=== PATIENT | male | born 1960 | race African-American/Black ===

== ENCOUNTER 2016-08-12 09:30 | Inpatient (IN) | payer BC ==
[2016-08-12] MEDS ORDERED: ONDANSETRON 4 MG/2 ML VIAL IVPUSH ONE (11:47)
[2016-08-12] MEDS ORDERED: PANTOPRAZOLE SODIUM 40 MG in SODIUM CHLORIDE 100 ML IVPB ONE (11:47)
[2016-08-12] MEDS ORDERED: SODIUM CHLORIDE 1,000 ML IV STA (11:47)
[2016-08-12] MEDS ORDERED: PANTOPRAZOLE SODIUM 100 ML IVPB ONE (11:52)
[2016-08-12] MEDS ORDERED: ONDANSETRON 4 MG/2 ML VIAL ONE (11:52)
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
[2016-08-12 12:35] LABS: BASOPHIL 0.3 % (0-2.0); MCHC 32.5 g/dl (32.0-35.9); MEAN CELL VOLUME 83.2 fl (80-96); MEAN PLT VOLUME 8.8 fl (7.5-11.1); NEUTROPHILS 67.1 % (42.8-82.8); PLATELET COUNT 225 K/MM3 (134-434); RDW 14.1 % (11.9-15.9); WHITE BLOOD COUNT 8.2 K/mm3 (4.0-10.0)
[2016-08-12 13:02] LABS: ALBUMIN 4.2 g/dl (3.4-5.0); ANION GAP 10 (8-16); CALCIUM 9.4 mg/dL (8.5-10.1); CO2 30 mmol/L (21-32); COCKROFT - GAULT 127.54; CREATININE 1.1 mg/dL (0.7-1.3); GLUCOSE,RANDOM 83 mg/dL (74-106); MAGNESIUM 2.3 mg/dL (1.8-2.4); SGOT/AST 32 U/L (15-37); SGPT/ALT 44 U/L (12-78)
[2016-08-12 13:04] LABS: ALK PHOS 160 U/L (45-117); BILIRUBIN,TOTAL 0.5 mg/dL (0.2-1.0); TOT PROT 7.7 g/dl (6.4-8.2)
[2016-08-12] MEDS: CIPROFLOXACIN 0.3% EYE DROPS 5 ML BOTTLE OD SCH ×3 (13:24→22:05)
[2016-08-12] MEDS: prednisoLONE ACETATE 1% OPHTH SUSP 5 ML BOTTLE OD SCH ×3 (13:24→22:05)
[2016-08-12 14:30] LABS: URINE APPEARANCE CLEAR; URINE BILIRUBIN NEGATIVE (NEGATIVE); URINE BLOOD NEGATIVE (NEGATIVE); URINE COLOR LTYELLOW; URINE GLUCOSE (UA) NEGATIVE (NEGATIVE); URINE KETONE NEGATIVE (NEGATIVE); URINE LEUK ESTERASE NEGATIVE (NEGATIVE); URINE NITRITE NEGATIVE (NEGATIVE); URINE PROTEIN NEGATIVE (NEGATIVE); URINE UROBILINOGEN NEGATIVE E.U./dl (0.2-1.0)
[2016-08-12] MEDS ORDERED: morphine CARPU-JECT 2 MG/1 ML DISP.SYRIN IVPUSH PRN (19:20)
[2016-08-12] MEDS ORDERED: ONDANSETRON 4 MG/2 ML VIAL IVPB PRN (19:20)
[2016-08-12] MEDS ORDERED: SODIUM CHLORIDE 1,000 ML IV SCH (19:30)
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
[2016-08-13 03:04] VITALS: BMI 37.9
[2016-08-13 07:29] LABS: MCH 27.2 pg (25.7-33.7); MEAN CELL VOLUME 82.6 fl (80-96); MEAN PLT VOLUME 8.4 fl (7.5-11.1); PLATELET COUNT 204 K/MM3 (134-434); RDW 14.4 % (11.9-15.9); WHITE BLOOD COUNT 5.7 K/mm3 (4.0-10.0)
[2016-08-13 08:06] LABS: ALBUMIN 3.5 g/dl (3.4-5.0); ANION GAP 8 (8-16); CALCIUM 8.2 mg/dL (8.5-10.1); CO2 30 mmol/L (21-32); GLUCOSE,RANDOM 78 mg/dL (74-106); MAGNESIUM 2.2 mg/dL (1.8-2.4); SGOT/AST 27 U/L (15-37)
[2016-08-13 08:08] LABS: ALK PHOS 138 U/L (45-117); BILIRUBIN,TOTAL 0.5 mg/dL (0.2-1.0); COCKROFT - GAULT 137.62; SGPT/ALT 41 U/L (12-78); TOT PROT 6.7 g/dl (6.4-8.2)
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
[2016-08-13] MEDS ORDERED: DEXTROSE 5%-NORMAL SALINE 1,000 ML IV SCH (08:45)
[2016-08-13] MEDS: prednisoLONE ACETATE 1% OPHTH SUSP 5 ML BOTTLE OD SCH ×2 (10:25→14:53)
--- NOTE | 2016-08-13 11:48 | EKG ---
Test Reason : Blood Pressure : / mmHG Vent. Rate : 060 BPM Atrial Rate : 060 BPM P-R Int : 166 ms QRS Dur : 092 ms QT Int : 418 ms P-R-T Axes : 041 004 027 degrees QTc Int : 418 ms NORMAL SINUS RHYTHM POSSIBLE LEFT ATRIAL ENLARGEMENT NONSPECIFIC T WAVE ABNORMALITY ABNORMAL ECG WHEN COMPARED WITH ECG OF 14-JUL-2015 11:08, NO SIGNIFICANT CHANGE WAS FOUND Confirmed by BECKY CHINCHILLA, NICKO ([id number]) on 08/13/2016 11:48:33 AM Referred By: Confirmed By:NICKO PENA MD
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
[2016-08-13 14:19] VITALS: BP 144/99; PULSE 74; TEMP 97.7
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
--- NOTE | 2016-08-13 16:50 | DS ---
Physical Exam: SUBJECTIVE: Patient seen and examined OBJECTIVE: Vital Signs Period Temp Pulse Resp BP Sys/Valladares Pulse Ox Last 24 Hr 97.7 F-98.8 F 66-74 18-22 105-145/71-99 95-98 PHYSICAL EXAM GENERAL: The patient is awake, alert, and fully oriented, in no acute distress. HEAD: Normal with no signs of trauma. EYES: PERRL, extraocular movements intact, sclera anicteric, conjunctiva clear. ENT: Ears normal, nares patent, oropharynx clear without exudates, moist mucous membranes. NECK: Trachea midline, full range of motion, supple. LUNGS: Breath sounds equal, clear to auscultation bilaterally, no wheezes, no crackles, no accessory muscle use. HEART: Regular rate and rhythm, S1, S2 without murmur, rub or gallop. ABDOMEN: Soft, nontender, nondistended, normoactive bowel sounds, no guarding, no rebound, no hepatosplenomegaly, no masses. EXTREMITIES: 2+ pulses, warm, well-perfused, no edema. NEUROLOGICAL: Cranial nerves II through XII grossly intact. Normal speech, gait not observed. PSYCH: Normal mood, normal affect. SKIN: Warm, dry, normal turgor, no rashes or lesions noted. LABS Laboratory Results - last 24 hr 08/13/16 08/13/16 06:20 06:20 WBC 5.7 D RBC 5.29 Hgb 14.4 Hct 43.7 MCV 82.6 MCHC 33.0 RDW 14.4 Plt Count 204 MPV 8.4 Sodium 143 Potassium 3.6 Chloride 105 Carbon Dioxide 30 Anion Gap 8 BUN 10 D Creatinine 1.0 Creat Clearance w eGFR > 60 Random Glucose 78 Calcium 8.2 L Phosphorus 3.0 Magnesium 2.2 Total Bilirubin 0.5 AST 27 ALT 41 Alkaline Phosphatase 138 H Total Protein 6.7 Albumin 3.5 HOSPITAL COURSE: Date of Admission:08/12/16 Date of Discharge: 08/13/16 Minutes to complete discharge: 35 Discharge Summary Reason For Visit: SMALL BOWEL OBSTRUCTION Current Active Problems COPD (chronic obstructive pulmonary disease) (Acute) JOSE A (obstructive sleep apnea) (Acute) Small bowel obstruction (Acute) Condition: Improved - Instructions Referrals: Frank Brice MD [Primary Care Provider] - Disposition: HOME - Home Medications Comprehensive Discharge Medication List: Ambulatory Orders [place]-3 Acid Ethyl Esters [Lovaza -] 1 gm PO DAILY 09/19/14 Amlodipine Besylate [Norvasc -] 10 mg PO DAILY #0 tablet 02/04/15 Losartan Potassium 50 mg PO DAILY #0 tablet 02/04/15 Ciprofloxacin 0.3% Eye Drops [Ciloxan 0.3% Eye Drops -] 1 drop OD Q4HWA Latanoprost 0.005% Eye Drops [Xalatan 0.005% Eye Drops -] 1 drop OU HS 08/12/16 Prednisolone 1% Ophthalmic [Pred Forte 1% -] 1 drop OD Q4HWA 08/12/16 This patient is new to me today: Yes Date on this admission: 08/13/16 Emergency Visit: Yes ED Registration Date: 08/12/16 Care time: The patient presented to the Emergency Department on the above date and was hospitalized for further evaluation of their emergent condition. Critical Care patient: No - Discharge Referral Referred to [facility] No
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
== END 2016-08-13 17:30 | disposition home or self-care (01) | DRG 390 ==
LOC: JER 09:30 → JERBED 18:40 → J5S 23:50
PROVIDERS: ADMIT Internal Medicine; ATTEND Nurse Practitioner Acute Care
DX: K56.60 Unspecified intestinal obstruction (principal); K21.9 Gastro-esophageal reflux disease without esophagitis; I10 Essential (primary) hypertension; H40.9 Unspecified glaucoma; Z87.891 Personal history of nicotine dependence; G47.33 Obstructive sleep apnea (adult) (pediatric); J44.9 Chronic obstructive pulmonary disease, unspecified
CPT/HCPCS: 36415; 74176-TC; 74177-TC; 80053; 81003; 83690; 83735; 84100; 85025; 85027; 93005; 93010; 99285-25; Q9967

== ENCOUNTER 2020-02-29 06:05 | Day surgery (SDC) | payer OTHER ==
[2020-02-27 18:37] VITALS: BMI 36.9
[~2020-02-29 06:05] MED LIST: BUPIVACAINE HCL/PF 0.5% (5 MG/ML) 30 ML VIAL IJ ONE; ceFAZolin SODIUM 1 GM VIAL IVPB ONE
[2020-02-29] MEDS ORDERED: LIDOCAINE 1%/EPI 1:100000 (50 ML MULTI DOSE VIAL) ONE (10:23)
[2020-02-29] MEDS ORDERED: MIDAZOLAM HCL 2 MG/2 ML SINGLE DOSE VIAL ONE (11:56)
[2020-02-29] MEDS ORDERED: LIDOCAINE HCL/PF 2% SDV 5ML VIAL ONE (12:10)
[2020-02-29] MEDS ORDERED: PROPOFOL 20 ML ONE ×2 (12:10)
[2020-02-29] MEDS ORDERED: BUPIVACAINE HCL/PF 0.5% (5 MG/ML) 30 ML VIAL IJ ONE (12:16)
[2020-02-29] MEDS ORDERED: IBUPROFEN 800 MG/8 ML IJ IVPB PRN (12:49)
[2020-02-29] MEDS ORDERED: ACETAMINOPHEN 500 MG TABLET (FP) PO PRN (12:49)
[2020-02-29] MEDS ORDERED: oxyCODONE HCL 5 MG TABLET PO PRN (12:49)
[2020-02-29] MEDS ORDERED: ONDANSETRON 4 MG/2 ML VIAL IVPUSH PRN (12:49)
[2020-02-29] MEDS ORDERED: LACTATED RINGERS SOLUTION 1,000 ML IV SCH (13:00)
[2020-02-29] MEDS ORDERED: ACETAMINOPHEN INJECTION 100 ML IVPB ONE (13:58)
[2020-02-29 15:02] VITALS: PULSE 77
[2020-02-29 15:32] VITALS: BP 122/83; TEMP 97
== END 2020-02-29 16:05 | disposition home or self-care (01) ==
LOC: JASU-SURG 06:05
PROVIDERS: ATTEND Orthopaedic Surgery
PROC: 0SCD4ZZ Extirpation of Matter from Left Knee Joint, Percutaneous Endoscopic Approach (ICD-10-PCS; 2020-02-29)
PROC: 0SBD4ZZ Excision of Left Knee Joint, Percutaneous Endoscopic Approach (ICD-10-PCS; principal; 2020-02-29 11:30)
DX: S83.212A Bucket-handle tear of medial meniscus, current injury, left knee, initial encounter (principal); X58.XXXA Exposure to other specified factors, initial encounter; Y93.9 Activity, unspecified; Y92.9 Unspecified place or not applicable; Y99.9 Unspecified external cause status
CPT/HCPCS: 88304-TC; 88311-TC; 93005; 93010; 94760; J0131